=== PATIENT | male | born 1995 | race Two or more races ===

== ENCOUNTER 2020-03-08 17:34 | Emergency (ER) | payer MEDICAID, OTHER ==
[~2020-03-08] VITALS: Ht 175.3 cm; Wt 77.1 kg
[2020-03-08] MEDS ORDERED: IBUPROFEN 600 MG TAB PO ONE (18:15)
[2020-03-08] MEDS ORDERED: ONDANSETRON HCL 4 MG/2 ML VIAL IV ONE (19:00)
[2020-03-08] MEDS ORDERED: MORPHINE SULFATE 4 MG/ML SYR/VIAL IV ONE (19:00)
[2020-03-08] MEDS ORDERED: ETOMIDATE (2MG/ML) 20ML VIAL IV ONE (19:45)
[2020-03-08] MEDS ORDERED: TETANUS-DIPTH-ACEL PERTUSSIS 0.5ML SYR Tdap IM ONE (19:45)
[2020-03-08 20:00] VITALS: BP 130/61
[2020-03-08] MEDS ORDERED: LORazepam 2MG/ML-1ML VIAL ONE (20:32)
[2020-03-08] MEDS ORDERED: LORazepam 2MG/ML-1ML VIAL IV ONE (20:45)
[2020-03-08 20:51] LABS: Amphetamine Screen, Urine NEGATIVE (NEGATIVE); Barbiturate Scree,Urine NEGATIVE (NEGATIVE); Benzodiazephine Screen, Urine NEGATIVE (NEGATIVE); Cannabinoid Screen, Urine POSITIVE (NEGATIVE); Cocaine Screen, Urine NEGATIVE (NEGATIVE); Opiate Scree,Urine NEGATIVE (NEGATIVE); Phencyclidine Screen, Urine NEGATIVE (NEGATIVE)
== END 2020-03-08 21:36 | disposition home or self-care (01) ==
LOC: ER 17:34
DX: S52.332A Displaced oblique fracture of shaft of left radius, initial encounter for closed fracture (principal); S52.232A Displaced oblique fracture of shaft of left ulna, initial encounter for closed fracture; S52.092A Other fracture of upper end of left ulna, initial encounter for closed fracture; S43.492A Other sprain of left shoulder joint, initial encounter; V49.40XA Driver injured in collision with unspecified motor vehicles in traffic accident, initial encounter; Y93.89 Activity, other specified; Y92.89 Other specified places as the place of occurrence of the external cause; Y99.8 Other external cause status
CPT/HCPCS: 25565; 71045; 73030; 73090; 73100; 80307; 90471; 90715; 96374; 96375; 99152; 99285; J2060; J2270; J2405